=== PATIENT | male | born 1955 | race Caucasian/White ===

== ENCOUNTER 2016-12-11 18:39 | Emergency (ER) | payer BC ==
[~2016-12-11] VITALS: Ht 182.9 cm; Wt 81.6 kg
[2016-12-11 18:55] VITALS: BP_SYST 124
[2016-12-11 19:30] VITALS: BP_SYST 121
== END 2016-12-11 19:30 | disposition home or self-care (01) ==
LOC: SED 18:39
DX: J01.90 Acute sinusitis, unspecified (principal); E03.9 Hypothyroidism, unspecified; E06.3 Autoimmune thyroiditis
CPT/HCPCS: 99283